=== PATIENT | female | born 1960 | race Caucasian/White ===

== ENCOUNTER 2019-01-22 08:31 | Day surgery (SDC) | payer BC ==
[~2019-01-22] VITALS: Ht 167.6 cm; Wt 80.1 kg
[2019-01-22 09:17] LABS: BASOPHILS # (AUTO) 0.1 X10'3 (0-0.2); BASOPHILS % (AUTO) 0.6 % (0-1); EOSINOPHILS # (AUTO) 1.2 X10'3 (0-0.9); EOSINOPHILS % (AUTO) 6.6 % (0-6); HEMOGLOBIN 13.3 g/dl (12.0-16.0); LYMPHOCYTES % (AUTO) 5.6 % (21-51); MEAN CORPUSCULAR HEMOGLOBIN 32.8 PG (27.0-31.0); MEAN CORPUSCULAR HGB CONC 33.3 g/dL (33.0-36.5); MEAN CORPUSCULAR VOLUME 98.5 FL (78-98); MEAN PLATELET VOLUME 9.5 FL (7.4-10.4); MONOCYTES # (AUTO) 1.6 X10'3 (0-0.9); MONOCYTES % (AUTO) 8.9 % (2-12); NEUTROPHILS # (AUTO) 13.8 X10'3 (1.8-7.7); NEUTROPHILS % (AUTO) 78.3 % (42-75); PLATELET COUNT 89 X10'3 (140-440); RED BLOOD COUNT 4.07 X10'6 (4.20-5.60); RED CELL DISTRIBUTION WIDTH 13.8 % (11.5-14.5); WHITE BLOOD COUNT 17.6 X10'3 (4.5-11.0)
[2019-01-22 09:45] VITALS: BP 108/65
[2019-01-22] MEDS ORDERED: HYDROcodone/acetaminophen 5mg/325mg tablet PO PRN (09:45)
[2019-01-22] MEDS ORDERED: OXAZEpam 15mg capsule PO ONE (09:45)
[2019-01-22] MEDS ORDERED: normal saline 1000ml 1,000 ML IV PRN ×2 (09:55→10:00)
[2019-01-22] MEDS ORDERED: albumin 25% 100mL bottle x 1 IV PRN (09:55)
[2019-01-22] MEDS ORDERED: LIDOcaine 1%/PF 5ML 10 MG/ML VIAL ONE (10:57)
[2019-01-22] MEDS ORDERED: HYDR-3964 PO (10:58)
[2019-01-22] MEDS ORDERED: METF1000 PO (10:58)
[2019-01-22] MEDS ORDERED: LORA-269 PO (10:58)
[2019-01-22] MEDS ORDERED: METO-292 PO (10:58)
[2019-01-22] MEDS ORDERED: POLY17PO10 PO (10:58)
[2019-01-22] MEDS ORDERED: GABA800T11 PO (10:58)
[2019-01-22] MEDS ORDERED: LOSA100T57 PO (10:58)
[2019-01-22] MEDS ORDERED: ALBU8HFA PO (10:58)
[2019-01-22] MEDS ORDERED: ONDA8TAB6 PO (10:58)
[2019-01-22] MEDS ORDERED: POTA10CA44 PO (10:58)
[2019-01-22] MEDS ORDERED: DIPH25CA83 PO (10:58)
[2019-01-22] MEDS ORDERED: DENO60DI SQ (10:58)
[2019-01-22] MEDS ORDERED: LORA-512 PO (10:58)
[2019-01-22] MEDS ORDERED: midazolam 2 mg/2 ml injection IV PRN (11:15)
[2019-01-22] MEDS ORDERED: LIDOcaine 1% 30ml preserv. free vial SQ ONE (11:15)
[2019-01-22] MEDS ORDERED: fentaNYL/PF 50MCG/1 ML 2ML syringe IV PRN (11:15)
[2019-01-22] MEDS ORDERED: heparin sodium, porcine/PF 100unit/ml 5ML syringe ICATH ONE (11:15)
[2019-01-22] MEDS ORDERED: heparin sodium, porcine/PF 100unit/ml 5ML syringe ONE (11:24)
[2019-01-22] MEDS ORDERED: midazolam 2 mg/2 ml injection ONE (11:25)
[2019-01-22] MEDS ORDERED: fentaNYL/PF 50MCG/1 ML 2ML syringe ONE ×2 (11:25→13:19)
[2019-01-22 13:52] VITALS: BP 111/77
[2019-01-22 14:12] VITALS: BP 92/71
== END 2019-01-22 14:15 | disposition home or self-care (01) ==
LOC: SSTAY O 08:31
PROVIDERS: ATTEND Radiology Vascular & Interventional Radiology
DX: C50.512 Malignant neoplasm of lower-outer quadrant of left female breast (principal); E11.40 Type 2 diabetes mellitus with diabetic neuropathy, unspecified; I10 Essential (primary) hypertension; J45.909 Unspecified asthma, uncomplicated; M85.80 Other specified disorders of bone density and structure, unspecified site; Z90.12 Acquired absence of left breast and nipple; Z90.49 Acquired absence of other specified parts of digestive tract; Z96.653 Presence of artificial knee joint, bilateral; Z88.0 Allergy status to penicillin; Z88.5 Allergy status to narcotic agent; Z88.8 Allergy status to other drugs, medicaments and biological substances; Z79.899 Other long term (current) drug therapy; Z79.01 Long term (current) use of anticoagulants
CPT/HCPCS: 36415; 36561; 76937; 77001; 82948; 85025; 85610; 99152; 99153; J1642; J2250; J3010; J7030; A6213; C1769; C1788; C1894